=== PATIENT | male | born 1985 | race Caucasian/White ===

== ENCOUNTER 2020-05-29 06:04 | Emergency (ER) | payer MEDICAID, SELFPAY ==
[2020-05-29 06:05] VITALS: BP 135/83; PULSE 62; RESP 15; O2SAT 97
--- NOTE | 2020-05-29 06:11 | XR_ITS ---
PROCEDURE: XR ANKLE RT MIN 3V CLINICAL INDICATION: injury playing basketball last night COMPARISON: No exams were available for comparison FINDINGS: Medial and lateral malleolus appear intact. The ankle mortise is normal. Mild diffuse soft tissue swelling laterally. There is a small spur of the calcaneus at insertion of Achilles tendon. IMPRESSION: Mild soft tissue injury, no definite fracture seen Dictated by: Dr. Eddi Herrera MD 05/29/2020 09:05 Dr. Eddi Herrera MD in [place] 05/29/2020 09:05
--- NOTE | 2020-05-29 06:11 | HMH.EDGENADL ---
ED Disposition Clinical Impression: Ankle sprain and strain Disposition: Home, Self-Care Condition on Discharge: Good Instructions: DI for Muscle Strain Referrals: Kira Alonzo [Primary Care Provider] - - Critical Care Critical Care Time: No Attestation: On , the high probability of a clinically significant, sudden or life threatening deterioration of the following system(s) required my full and direct attention, intervention and personal management. The time I documented below is in addition to time spent performing reported procedures but includes the following listed in this critical care notation. Medical Decision Making - Medical Records Medical records reviewed: Yes: I reviewed the patient's medical records. - Khris Inquiry Pt receiving controlled substance: No Vital Signs: 05/29/20 06:05 05/29/20 06:16 Temperature 98.2 F Temperature Source Oral Pulse Rate [Right] 62 82 Respiratory Rate 15 16 Blood Pressure [Right Arm] 135/83 140/70 Blood Pressure Mean [Right Arm] 100 93 Blood Pressure Source [Right Arm] Automatic Cuff Automatic Cuff Blood Pressure Position [Right Arm] Supine Sitting 02 Sat by Pulse Oximetry 97 97 Oxygen Delivery Method Room Air Room Air Orders (Tests/Meds): ORDERS Category Date Time Status XR ankle RT min 3V Stat Exams 05/29/20 06:11 Taken Medical Decision Narrative: In summary this is a 34-year-old male presenting for right lower ankle pain. Patient has swelling and soreness to lateral malleolus, x-ray obtained, there is no fracture that I see on x-ray. Given patient's location of pain, likely as a talofibular ligament sprain. Patient difficulty with weightbearing, patient was given Aircast and crutches. Patient to follow-up with her primary care doctor for further work-up and possible reimaging. Patient amenable to plan. Discharged home. General Adult HPI - General Stated complaint: AO 05/28/20 22:00 Injury right ankle Time Seen by Provider: 05/29/20 06:31 Source of Information: Patient Limitations: No Limitations - History of Present Illness HPI narrative: Patient is a 34-year-old male presenting for right ankle injury. Patient has no past medical surgical history, patient was plain basketball last night around 10 PM when he rolled his ankle inward. Patient had ankle inversion injury, denies any other trauma, no loss consciousness, patient had isolated pain in his right ankle, patient presents this morning the swelling is worse and so the pain. Patient had bleeding on scene, no open wounds. - Related Data Home Medications Medication Instructions Recorded Confirmed No Known Home Medications 05/29/20 05/29/20 Allergies Allergy/AdvReac Type Severity Reaction Status Date / Time Penicillin Allergy Unknown Uncoded 05/18/17 15:05 [facility] History - Hepatitis A Screen Attestation statement:: This patient has been screened for Hepatitis A risk factors. I have reviewed the patient's past medical history: Yes ROS Obtained: Yes All systems reviewed & no additional complaints Physical Exam - General General appearance: alert, in no apparent distress - Head Head exam: atraumatic, normocephalic, normal inspection - Chest Chest inspection: Present: normal inspection, symmetric chest wall rise. Absent: tenderness - Respiratory Respiratory exam: Present: normal lung sounds bilaterally. Absent: respiratory distress - Cardiovascular Cardiovascular exam: Present: regular rate, normal rhythm. Absent: JVD - Abdominal Exam Abdominal exam: Present: soft. Absent: distention, tenderness, guarding - Extremities Exam Extremities exam: Present: other (Tenderness to palpation lateral ankle, swelling to lateral ankle, no open wounds, nontender over proximal tibia-fibula, posterior mall, medial mall or Lisfranc joint) - Neurological Exam Neurological exam: Present: alert, oriented X3
[2020-05-29 06:16] VITALS: BP 140/70; PULSE 82; RESP 16; TEMP 36.8; O2SAT 97; BMI 34.8
[2020-05-29 06:46] VITALS: BP 135/83; PULSE 64; RESP 16; TEMP 36.8; O2SAT 96
== END 2020-05-29 06:49 | disposition home or self-care (01) ==
PROVIDERS: Emergency Provider Emergency Medicine; PCP Pediatrics
DX: S93.401A Sprain of unspecified ligament of right ankle, initial encounter (principal); X50.1XXA Overexertion from prolonged static or awkward postures, initial encounter; Y93.59 Activity, other involving other sports and athletics played individually; Y92.019 Unspecified place in single-family (private) house as the place of occurrence of the external cause; Z88.0 Allergy status to penicillin
CPT/HCPCS: 29515; 73610; 99284

== ENCOUNTER 2021-10-17 00:53 | Emergency (ER) | payer MEDICAID, SELFPAY ==
[2021-10-17 00:54] VITALS: BP 147/93; PULSE 63; RESP 18; TEMP 36.4; O2SAT 99; BMI 34.2
--- NOTE | 2021-10-17 01:16 | HMH.EDEAR ---
ED Disposition Clinical Impression: Tympanic membrane central perforation Qualifiers: Laterality: left Qualified Code(s): H72.02 - Central perforation of tympanic membrane, left ear Disposition: Home, Self-Care Condition on Discharge: Good Instructions: DI for Tympanic Membrane Perforation-Adult Additional Instructions: call pcp in am for follow up Prescriptions: Cefdinir [Omnicef 300mg Capsule] 300 mg PO BID #14 cap Transmission Status: Pending to [id number] Referrals: Kira Alonzo [Primary Care Provider] - - Critical Care Critical Care Time: No Attestation: On 10/17/21, the high probability of a clinically significant, sudden or life threatening deterioration of the following system(s) required my full and direct attention, intervention and personal management. The time I documented below is in addition to time spent performing reported procedures but includes the following listed in this critical care notation. Medical Decision Making - Medical Records Medical records reviewed: Yes: I reviewed the patient's medical records. - Khris Inquiry Pt receiving controlled substance: No Vital Signs: 10/17/21 00:54 Temperature 97.6 F Temperature Source Oral Pulse Rate [Right] 63 Respiratory Rate 18 Blood Pressure [Right Arm] 147/93 H Blood Pressure Mean [Right Arm] 111 02 Sat by Pulse Oximetry 99 - Lab Data Lab results reviewed: Yes: I reviewed the patient's lab results. Medical Decision Narrative: pt with tm perforated with bldy d/c Ear HPI - General Chief complaint: Ear Stated complaint: busted ear drum Time Seen by Provider: 10/17/21 01:16 Mode of Arrival: Ambulatory Source of Information: Patient, Medical Record Limitations: No Limitations Description of Symptoms (Recalled from ER Triage Doc. by RN): pt c/o ear pain x 2 days, 30 mins prior to arrival pt woke up with lt ear pain and began bleeding. - History of Present Illness HPI Narrative: has had pressure to lt ear andf then pain and bleeding lt ear - no trauma MD Complaint: ear pain, other (bleeding ) Location: left ear Duration: constant Severity: moderate Discharge from ear: yes - bloody Treatment prior to arrival: none - Related Data Previous Rx's Medication Instructions Recorded Cefdinir [Omnicef 300mg Capsule] 300 mg PO BID #14 cap 10/17/21 Allergies Allergy/AdvReac Type Severity Reaction Status Date / Time Penicillin Allergy Unknown Uncoded 05/18/17 15:05 [facility] History - Hepatitis A Screen Attestation statement:: This patient has been screened for Hepatitis A risk factors. I have reviewed the patient's past medical history: Yes ROS Obtained: Yes All systems reviewed & no additional complaints - Constitutional Constitutional: Denies fever(s) - Eyes Eyes: Denies change in vision - ENT Ears, Nose, Mouth, and Throat: Reports as per HPI, Reports ear discharge, Reports otalgia, Denies neck pain - Cardiovascular Cardiovascular: Denies chest pain - Respiratory Respiratory: Denies cough - Gastrointestinal Gastrointestingal: Denies: diarrhea - Genitourinary Male Genitourinary: Denies hematuria - Musculoskeletal Musculoskeletal: Denies joint pain - Integumentary/Breasts Skin/Breast: Denies rash - Neurologic Neurologic: Denies headache(s), Denies seizure-like activity Physical Exam - General General appearance: alert - Head Head exam: normocephalic - Eye Eye exam: Present: PERRL, EOMI - ENT ENT exam: Present: mucous membranes moist - Expanded ENT Exam TM/Canal exam: Left TM: perforation - Neck Neck exam: Present: trachea midline - Respiratory Respiratory exam: Absent: respiratory distress - Cardiovascular Cardiovascular exam: Present: regular rate - Abdominal Exam Abdominal exam: Present: soft - Extremities Exam Extremities exam: Present: full ROM - Neurological Exam Neurological exam: Present: alert, CN II-XII intact - Psychiatr
[2021-10-17 01:43] VITALS: BP 134/78; PULSE 60; RESP 18; TEMP 36.4; O2SAT 99
== END 2021-10-17 01:44 | disposition home or self-care (01) ==
PROVIDERS: Emergency Provider Emergency Medicine; PCP Pediatrics
DX: H72.02 Central perforation of tympanic membrane, left ear (principal); Z88.0 Allergy status to penicillin
CPT/HCPCS: 99283